=== PATIENT | male | born 1950 | race Caucasian/White ===

== ENCOUNTER → 2017-03-03 | Outpatient (CLI) | payer OTHER ==
--- NOTE | ~2017-03-03 | CT57 ---
[facility] A Service of [facility] & [facility] RADIOLOGY TEXT RESULTS PATIENT: NESSA KUNZ LOCATION: [facility] : 54 UNIT #: [id number] AGE: [address]: Randal Reynoso MD SEX: M ORDER DR: [id number] [address] [address] [id number] O MR#: [id number] [facility] #: [id number] NAME: NESSA KUNZ. : 1950 SEX: M STUDY DATE/TIME: 03/03/2017 15:32 UNIT: [facility] ROOM: STUDY DESCRIPTION: CT Chest Wo Cont Attending Physician: Randal Reynoso M.D. Referring Physician: Randal Reynoso M.D. Ordering Physician: Randal Reynoso M.D. Primary Care Physician: Randal Reynoso M.D. MEDICAL IMAGING REPORT This report is preliminary unless electronic signature is present EXAM CT chest without contrast. INDICATIONS Right lower lobe pulmonary nodule. This was evidently identified on a chest radiograph performed at Dr. Reynoso's office last week. TECHNIQUE CT images obtained from the thoracic inlet through the dome of the diaphragm. No intravenous contrast administered. This CT exam was performed with one or more of the following radiation dose reduction techniques: automatic exposure control, adjustment of mA and/or kV according to patient size, and iterative reconstruction. FINDINGS Within the right lower lobe, this patient has a benign, centrally calcified nodule. No suspicious pulmonary nodules or masses are seen. The thyroid gland, trachea and esophagus appear unremarkable. Patient does have coronary artery calcifications. Mediastinal lymph nodes do not appear pathologically enlarged. Thoracic aorta measures within normal size limits. Images through the upper abdomen demonstrate changes of prior cholecystectomy. Review of bony windows does not demonstrate any aggressive osseous abnormalities. IMPRESSION 1. This exam was requested to further evaluate the nodule within the right lower lobe. Patient has a centrally calcified benign-appearing nodule seen in the right lower lobe. No additional followup is necessary. No additional suspicious pulmonary nodules or masses are seen. 2. Coronary artery calcifications. [facility] A Service of [facility] & [facility] RADIOLOGY TEXT RESULTS PATIENT: NESSA KUNZ LOCATION: [facility] : 54 UNIT #: [id number] AGE: [address]: Randal Reynoso MD SEX: M ORDER DR: Dictated by... Eli Romo M.D. THIS IS AN ELECTRONICALLY VERIFIED REPORT Eli Romo M.D. at 03/05/2017 5:01 PM AFF/pcl TD: 03/04/2017 21:44 JOB #: [id number] MEDICAL IMAGING REPORT Page 1 of 1 COPY
== END | disposition home or self-care (01) ==
LOC: CCAT 15:07
DX: R91.1 Solitary pulmonary nodule (principal); I25.10 Atherosclerotic heart disease of native coronary artery without angina pectoris
CPT/HCPCS: 71250